=== PATIENT | female | born 1990 | race Asian ===

== ENCOUNTER 2020-11-10 22:55 | Inpatient (IN) | payer BC ==
[~2020-11-10] VITALS: Ht 147.3 cm; Wt 69.9 kg
[2020-11-10 23:10] VITALS: BP 226/148; TEMP 97.8
[2020-11-10 23:25] VITALS: BP 206/159
[2020-11-11] VITALS (46 sets, daily range): BP systolic 117–205; BP diastolic 71–126; TEMP 97.9–98.6; Ht 147.3 cm; Wt 69.9 kg
[2020-11-11 01:04] LABS: POTASSIUM 3.2 mmol/L (3.6-5.2); SODIUM 139 mmol/L (136-145)
[2020-11-11 01:49] LABS: PLATELET COUNT 253 K/uL (152-353)
[2020-11-11 02:10] LABS: PARTIAL THROMBOPLASTIN TIME 24.3 SECONDS (24.5-33.6)
--- NOTE | 2020-11-11 05:10 | NUR ---
30 YR OLD FEMALE PT ADMITTED TO ICU 1 FROM ER FOR HYPERTENSION UNCONTROLLED, EPISTAXIS L NOSTRIL S/P RHINO ROCKET. PT ALERT AND ORIENTED X4 SITTING UP IN BED WITH NO S/S OF PAIN OR DISTRESS NOTED, DENIES ANY PAIN OR PROBLEMS AT THIS TIME, RESP RATE NONLABORED, ON ROOM AIR, 20G IV INTACT TO R HAND WITH CARDIZEM DRIP INFUSING AT 2.5MG/HR, LUNGS CLEAR TO AUSCULTATION, BS+, RADIAL AND PEDAL PULSES INTACT/EQUAL, SKIN WARM AND DRY. HX HTN. EDUCATED PT ON ORDERS AND ALL CARE, PT ACKNOWLEDGES UNDERSTANDING, VITALS BEING MONITORED Q 30 MINS, WILL MONITOR, RAILS UP, BED IN LOW POSITION, CALL LIGHT IN REACH.
--- NOTE | 2020-11-11 06:45 | NUR ---
RESTING IN BED WITH EYES CLOSED, NO S/S OF PAIN OR DISTRESS NOTED, RESP RATE NONLABORED, VITALS BEING MONITORED, IV INTACT WITH CARDIZEM DRIP ONGOING AT 2.5MG/HR, WILL MONITOR CLOSELY, RAILS UP, BED IN LOW POSITION, CALL LIGHT IN REACH.
--- NOTE | 2020-11-11 08:50 | NUR ---
PT UP TO BR. PT VOIDED 500CC CLOUDY PALE YELLOW URINE. AKOSUA FRANCISCO ASSISTED PT WITH CHANGING INTO A GOWN AT THIS TIME.
--- NOTE | 2020-11-11 09:10 | NUR ---
PT SITTING UP ON BEDSIDE EATING BREAKFAST.
[2020-11-11] MEDS ORDERED: AMLODIPINE BESYLATE PO (09:14)
[2020-11-11] MEDS ORDERED: COZAAR25 MG PO (09:15)
--- NOTE | 2020-11-11 11:30 | NUR ---
HARDEEP TANNER DC'Ivette AT THIS TIME. BP 121/75 HR 110
--- NOTE | 2020-11-11 16:03 | NUR ---
PT C/O HEADACHE AT THIS TIME. NOTIFIED DR. MOSLEY OF PT'S C/O, BP 125/84, HR 109. REC'D ORDERS TO GO AHEAD AND GIVE THE HYDRALAZINE PO AND START FIORCET ONE TAB Q4HRS PRN HEADACHE.
--- NOTE | 2020-11-11 18:35 | NUR ---
PT'S BP WNL SINCE DRIP STOPPED. ;LST BP 136/89 HR 102. ZAMAN GONE. NO CO AT THIS TIME. PT SITTING UP IN BED ON CELLPHONE,
--- NOTE | 2020-11-11 19:50 | NUR ---
PT. SITTING UP IN A LOW FOWLERS POSITION WITH SIDE RAILS UP TIMES TWO WITH BED IN LOWEST POSITION WITH CALL LIGHT WITHIN REACH. NO S/S OF ACUTE DISTRESS NOTED OR EXPRESSED. LAST RECORDED BP WAS 127/84. RESPIRATIONS EVEN AND NON-LABORED. SKIN WARM AND DRY IN UPPER AND LOWER EXTERMTIES. RADIAL PULSES EQUAL BILATERALLY. LEFT NARE RHINOROCKET INTACT. PT. TEMP AT 1900 IS 98.6. PT HAS A 20G TO THE RIGHT HAND THAT IS S/L AT THIS TIME. WILL CONTINUE TO MONITOR BP AND VITALS PROMPTLY AND ACCORDINGLY.
--- NOTE | 2020-11-11 20:05 | NUR ---
PT. AMBULATED TO THE BATHROOM WITH A STEADY GAIT. PT. PUT OUT 500 ML OF CLEAR URINE AT THIS TIME. NO S/S OF ACUTE DISTRESS NOTED. 2009- PT. BACK IN BED SAFELY WITH SIDE RAILS UP TIMES TWO WITH BED IN LOWEST POSITION WITH CALL LIGHT WITHIN REACH. WILL CONTINUE TO MONITOR FOR ACUTE CHANGES.
--- NOTE | 2020-11-11 20:20 | NUR ---
PT AWAKE, ALERT, AND ORIENTED SITTING UP IN BED WITH NO S/S OF ACUTE DISTRESS NOTED. VITALS BEING MONITORED, RESP RATE NONLABORED, ON ROOM AIR WITH SAT OF 99%, ANIMAL CARE GIVER IN USE WITH SLIGHTLY TACHY RATE OF 105 REGULAR, 20G IV LOCK INTACT TO R HAND WITH NO PROBLEMS NOTED TO SITE, LUNGS CLEAR, BS+, SKIN WARM AND DRY, RADIAL PULSES INTACT/EQUAL. NOTE RHINO ROCKET INTACT TO L NARE. PT STATES THAT HER NOSE IS BLEEDING SOME AGAIN(PLASTERER JOURNEYMAN DOES NOT NOTE ANY BLOOD COMING FROM NOSE) PT STATES SHE CAN FEEL IT "DRAINING DOWN MY THROAT". NO ACUTE DISTRESS NOTED. APPLIED ICE PACK TO NOSE AT THIS TIME, WILL MONITOR CLOSELY
--- NOTE | 2020-11-11 21:00 | NUR ---
PT AWAKE LAYING IN BED IN POSITION OF COMFORT WITH NO ACUTE DISTRESS NOTED. PT STATES SHE NO LONGER FEELS BLOOD DRAINING DOWN HER THROAT AND THAT THE NOSE BLEEDING HAS STOPPED SINCE ICE PACK WAS APPLIED TO HER NOSE. WILL MONITOR CLOSELY, RAILS UP, BED IN LOW POSITION, ENCOURAGED TO CALL NEEDED.
--- NOTE | 2020-11-11 22:30 | NUR ---
PT'S BP AT THIS TIME IS 123/71 AND HR 94. PT IS AWAKE ON CELLPHONE WITH NO ACUTE DISTRESS WITH SIDE RAILS UP TIMES TWO AND BED IN LOWEST POSITION. PT. HAS NO MORE COMPLAINTS OF EPISTAXIS. CALL LIGHT WITHIN REACH. WILL MONITOR FOR ANY ACUTE CHANGES.
[2020-11-12] VITALS (15 sets, daily range): BP systolic 100–148; BP diastolic 58–93; TEMP 97.6–98.3
--- NOTE | 2020-11-12 00:07 | NUR ---
RESTING IN BED ON R SIDE WITH EYES CLOSED, NO S/S OF PAIN OR DISTRESS NOTED, RESP RATE NONLABORED, VITALS BEING MONITORED, CRAFT SUPERINTENDENT IN USE WITH REGULAR RATE OF 88, WILL MONITOR CLOSELY, RAILS UP, BED IN LOW POSITION, CALL LIGHT IN REACH.
--- NOTE | 2020-11-12 00:58 | NUR ---
PT RESTING WITH EYES CLOSED IN A LOW-FOWLERS POSITION WITH SIDE RAILS UP TIMES TWO WITH BED IN LOWEST POSITION. NO S/S OF ACUTE DISTESS NOTED OR EXPRESSED AT THIS TIME. CURRENT BP IS 120/78 AND HR IS 91. IV S/LOCKED. PT. IS SATTING 100% ON ROOM AIR. RHINOROCKET TO THE LEFT NARE INTACT. WILL MONITOR FOR ANY FURTHER ACUTE CHANGES.
--- NOTE | 2020-11-12 02:35 | NUR ---
PT. LAYING IN BED WITH EYES CLOSED AT THIS TIME IN A LOW FOWLERS POSITION WITH SIDE RAILS UP TIMES TWO WITH BED IN LOWEST POSITION AND CALL LIGHT WITHIN REACH, NO S/S OF ACUTE DISTRESS NOTED AT THIS TIME. BP IS 118/65 AT THIS TIME, HR IS 86 AND CURRENTLY SATTING 100% ON ROOM AIR. IV S/LOCKED.
--- NOTE | 2020-11-12 04:06 | NUR ---
PT RESTING IN BED WITH EYES CLOSED ON R SIDE, NO S/S OF PAIN OR DISTRESS NOTED, RESP RATE NONLABORED, ON ROOM AIR, VITALS BEING MONITORED, EMPLOYEE RELATIONS ADVISOR IN USE REGULAR RATE OF 78, B/P AT 0400 104/58, IV LOCK INTACT TO R HAND, WILL MONITOR CLOSELY, RAILS UP, BED IN LOW POSITION.
--- NOTE | 2020-11-12 05:25 | NUR ---
LAB AT BEDSIDE TO DRAW MORNING LABS AT THIS TIME. PT TOLERATED WELL. PT LAYING WITH SIDE RAILS UP TIMES TWO WITH BED IN LOWEST POSITION WITH CALL LIGHT WITHIN REACH. BP IS 105/62 AT THIS TIME WITH A HR OF 81. NO S/S OF ACUTE DISTRESS NOTED OR EXPRESSED AT THIS TIME. WILL CONTINUE TO MONITOR.
[2020-11-12 05:38] LABS: PLATELET COUNT 269 K/uL (152-353)
[2020-11-12 05:50] LABS: POTASSIUM 3.6 mmol/L (3.6-5.2)
[2020-11-12] MEDS ORDERED: HYDR25TA57 PO (12:10)
--- NOTE | 2020-11-12 14:17 | NUR ---
PATIENT GIVEN DISCHARGE INSTRUCTIONS WITH VERBAL UNDERSTANDING NOTED. PATIENT INSTRUCTED TO CONTINUE TO TAKE ALL BLOOD PRESSURE MEDICATIONS IN ADDITON TO THE NEW ONE ADDED TODAY HYDRALAZINE 50 MG PO BID. PATIENT EDUCATED ON REPORTING CONTINUED SIGNS OF HIGH BLOOD PRESSURE INCLUDING; HEADACHE, NOSE BLEEDS, HIGH BLOOD PRESSURE, BLURRY VISION. PATIENT INSTRUCTED TO FOLLOW UP WITH PRIMARY CARE PROVIDER. APPOINTMENT WAS GOING TO BE MADE WITH PRIMARY CARE PROVIDER BUT PATIENT REFUSED AND STATED SHE WOULD NOT BE GOING BACK TO HER PROVIDER SHE WAS SEEING. PATIENT STATED SHE WOULD MAKE FOLLOW UP APPOINTMENT WITH HER PROVIDER OF CHOICE AT HOME. IV 20G TO THE RIGHT HAND REMOVED WITH TIP INTACT AND SECURED WITH TAPE. PATIENT BLOOD PRESSURE 130/87, HR 98, O2 100, RR-18. PATIENT REPORTS NO PAIN, NAUSEA, HEADACHE OR BLURRED. NO ACUTE DISTRESS NOTED. PATIENT TAKEN VIA WHEELCHAIR TO ER ENTRANCE WITH NO INCIDENT.
== END 2020-11-12 14:30 | disposition home or self-care (01) | DRG 305 ==
LOC: ED 22:55 → ICU 11-11 03:00
PROVIDERS: ADMIT Emergency Medicine; ATTEND Internal Medicine Endocrinology, Diabetes & Metabolism
DX: I10 Essential (primary) hypertension (principal); R04.0 Epistaxis; E66.8 Other obesity; E87.6 Hypokalemia; D64.9 Anemia, unspecified
CPT/HCPCS: 36415; 80048; 80053; 80307; 82550; 84484; 85027; 85379; 85610; 85730; 87635; 93005; 96365; 99285; J3490; U0003